=== PATIENT | female | born 1945 | race Caucasian/White ===

== ENCOUNTER 2017-04-02 13:42 | Emergency (ER) | payer OTHER ==
[2017-04-02 13:49] VITALS: RESP 18; TEMP 97.5; O2SAT 93
--- NOTE | 2017-04-02 14:58 | EDPHY ---
H & P Time Seen by Provider: 04/02/17 14:55 HPI/ROS: CHIEF COMPLAINT: Back pain HISTORY OF PRESENT ILLNESS: The patient is a 71-year-old female presenting with low back pain after a mechanical fall at 7am this morning. The patient slipped while going down her carpeted stairs this morning. She fell down the whole flight of stairs. She complains of left lumbar back pain that radiates into the left hip. She took 4 Aspirin without any pain relief. The patient was able to ambulate after the fall. She denies head injury. No lower extremity weakness or numbness. REVIEW OF SYSTEMS: A comprehensive 10 point review of systems is otherwise negative aside from elements mentioned in the history of present illness. Past Medical/Surgical History: Hypertension, Depression, Osteoarthritis, Thoracic spine surgery Social History: . Lives in [place]. Smoking Status: Former smoker Physical Exam: General Appearance: Alert, pleasant Head: Atraumatic Eyes: No conjunctival erythema, PERRLA, EOMI ENT, Mouth: No hemotympanum, no oral trauma, no bony tenderness Neck: Non-tender, full range of motion without pain Respiratory: No chest wall tenderness, lungs clear bilaterally Cardiovascular: Regular rate and rhythm Abdomen: Abdomen is soft and non tender Skin: No lacerations, no abrasions Back: No midline T/L/S tenderness Extremities: Pelvis is stable and nontender; no extremity tenderness or deformity, full range of motion without pain. Hip ROM without pain. Left hip flexion causes some pain in left lumbar. Neurological: A&Ox3, normal motor function, normal sensory exam, cranial nerves intact Psychiatric: Mood and affect normal Constitutional: Initial Vital Signs Temperature (C) 36.4 C 04/02/17 13:46 Heart Rate 81 04/02/17 13:46 Respiratory Rate 18 04/02/17 13:46 Blood Pressure 122/62 H 04/02/17 13:46 O2 Sat (%) 93 04/02/17 13:46 O2 Delivery Mode Room Air Allergies/Adverse Reactions: No Known Allergies Allergy (Verified 04/02/17 13:43) Home Medications: Medication Instructions Recorded Aspirin [Aspirin 81mg (OTC)] 81 mg PO HS 05/26/15 busPIRone [Buspar (*)] 10 mg PO TID 05/26/15 lamoTRIgine [LamICTAL 100 MG (*)] 100 mg PO DAILY 05/26/15 lamoTRIgine [LamICTAL 100 MG (*)] 150 mg PO HS 05/26/15 Desvenlafaxine Succinate [Pristiq] 100 mg PO DAILY 05/27/15 Lovaza 1 gm (*) 04/02/17 Medical Decision Making - Diagnostics Imaging Results: Imaging Impressions Hip X-Ray 04/02/17 14:25 Impression: 1. No acute fractures seen about the pelvis with attention left hip. Lumbar Spine X-Ray 04/02/17 15:15 Impression: 1. Chacon rods in place extending from the thoracic spine to the mid lumbar spine. 2. No acute osseous abnormality seen involving the lumbar spine. 3. Moderate facet hypertrophy lower lumbar spine, more on the right side. Imaging: I viewed and interpreted images myself ED Course/Re-evaluation: Patient presents with left lumbar pain after a mechanical fall today. Patient has normal ROM without pain in the hip. No midline tenderness. Hip x-ray is negative for fracture. Lumbar spine x-ray is negative for fracture. I discussed findings with the patient. Patient will be discharged home with Ibuprofen instructions. Return precautions given. Differential Diagnosis: Differential diagnosis includes though it is not limited to fracture, intracranial hemorrhage, pneumothorax, hemothorax, intra-abdominal hemorrhage. - Data Points Medications Given: Discontinued Medications Lidocaine (Lidoderm 5%) 1 ea TD EDNOW ONE Stop: 04/02/17 15:40 Last Admin: 04/02/17 15:43 Dose: 1 ea Departure - Departure Disposition: Home, Routine, Self-Care Clinical Impression: Lumbar contusion Qualifiers: Encounter type: initial encounter Qualified Code(s): S30.0XXA - Contusion of lower back and pelvis, initial encounter Condition: Good Instructions: Low Back Strain (ED) Additional Instructions: I recommend 600mg Ibuprofen every 6-8 hours as needed for pain. Followup with your primary care physician if pain persists. Referrals: FLORINA JOSEPH [Other] - As per Instructions Report Scribed for: Cecilia Jain Report Scribed by: Yoko Carroll Date of Report: 04/02/17 Time of Report: 14:58 Physician Review and Approval Statement: 04/02/17 14:58 Portions of this note were transcribed by a medical associate. I personally performed the history, physical exam, and medical decision-making; and confirmed the accuracy of the information in the transcribed note.
[2017-04-02] MEDS ORDERED: LIDOCAINE 5% 1 EA PATCH TD ONE (15:39)
[2017-04-02 16:14] VITALS: BP 146/75; PULSE 84
[2017-04-02] MEDS ORDERED: PATCH REMOVAL 1 EA PATCH TD SCH (21:00)
== END 2017-04-02 16:14 | disposition home or self-care (01) ==
DX: S30.0XXA Contusion of lower back and pelvis, initial encounter (principal); I10 Essential (primary) hypertension; Z79.82 Long term (current) use of aspirin; Z87.891 Personal history of nicotine dependence; W10.8XXA Fall (on) (from) other stairs and steps, initial encounter; Y99.8 Other external cause status